=== PATIENT | female | born 1950 | race Caucasian/White ===

== ENCOUNTER → 2017-04-22 19:55 | Outpatient (CLI) | payer MEDICARE, MEDICAID ==
[2013-09-06 13:28] VITALS: BMI 31.7
[~2017-04-22 19:55] MED LIST: BIOTIN5 MG PO; COLACE100 MG PO; CYMBALTA30 MG PO; DANTRIUM25 MG PO; DILAUDID4 MG PO; DOXEPIN HCL75 MG PO; ESTRACE 0.5 MG0.5 MG PO; LIPITOR20 MG PO; LISINOPRIL10 MG PO; LOPID600 MG PO; MOBIC7.5 MG PO; PERCOCET 10/3251 TA1 PO; PRINZIDE 10/12.1 TAB PO; PROTONIX40 MG PO; ZANAFLEX4 MG PO
== END | disposition home or self-care (01) ==
LOC: D.LABREF 19:55
DX: M25.512 Pain in left shoulder (principal); Z11.8 Encounter for screening for other infectious and parasitic diseases

== ENCOUNTER 2017-05-11 05:08 | Inpatient (IN) | payer MEDICARE, MEDICAID ==
[2017-05-08 08:54] LABS: BASOPHILS 0.3 % (0-2); EOSINOPHILS 2.7 % (0-7); HEMOGLOBIN 12.9 g/dL (12-16); IMMATURE GRANULOCYTES 0.3 % (0-5); MCH 28.9 pg (26.0-34.0); MCHC 32.3 g/dL (31.0-37.0); MCV 89.5 fL (80.0-100.0); MEAN PLATELET VOLUME 9.6 fL (7.4-10.4); MONOCYTES 5.8 % (2-11); NEUTROPHILS 67.9 % (40-80); PLATELET COUNT 289 10x3/uL (130-400); RBC 4.47 10x6/uL (4.00-5.40); RDW 13.7 % (11.5-14.5); WBC 9.1 10x3/uL (4.8-10.8)
[2017-05-08 08:57] LABS: APPEARANCE CLEAR (CLEAR); BILIRUBIN NEGATIVE (NEGATIVE); COLOR DK YELLOW (YELLOW); GLUCOSE NEGATIVE (NEGATIVE); KETONE NEGATIVE (NEGATIVE); NITRITE NEGATIVE (NEGATIVE); PROTEIN NEGATIVE (NEGATIVE); SPECIFIC GRAVITY 1.015 (1.005-1.020); UROBILINOGEN NORMAL (NORMAL)
[2017-05-08 09:04] LABS: ANION GAP 12.4 mmol/L (8-16); CALCIUM 9.2 mg/dL (8.5-10.1); CARBON DIOXIDE 29.6 mmol/L (21.0-32.0); CREATININE - SERUM 0.9 mg/dL (0.6-1.3)
[2017-05-08 09:06] LABS: APTT 30.9 SECONDS (22.8-39.4); INR 0.95 (0.85-1.17); PROTIME 12.5 SECONDS (11.6-15.0)
[~2017-05-11 05:08] MED LIST changes: -PERCOCET 10/3251 TA1 PO
[2017-05-11 06:31] VITALS: BP 137/88; BMI 33.7
[2017-05-11 10:35] VITALS: BP 125/77
[2017-05-11 10:43] VITALS: BP 125/77; BMI 28.4
--- NOTE | 2017-05-11 13:11 | OP ---
PATIENT NAME: ROYER PETER MEDICAL RECORD: [id number] :52 LOCATION:[id number] ADMISSION DATE:05/11/17 SURGEON: ARGELIA CANCHOLA MD DATE OF OPERATION: 05/11/2017 PREOPERATIVE DIAGNOSIS: Painful total shoulder arthroplasty. POSTOPERATIVE DIAGNOSIS: Painful total shoulder arthroplasty. PROCEDURE: Revision of total shoulder arthroplasty. SURGEON: Argelia Canchola MD ANESTHESIA: General. INTRAOPERATIVE COMPLICATIONS: None. SUMMARY OF PATHOLOGIC FINDINGS: The patient did have a very abnormal wear pattern on the glenoid. The glenoid was indeed very easily removable indicating some looseness. There was no glenoid vault bone loss and therefore it was reasonable to replace the glenoid as well as the humeral head component while the stem was well fixed and did not seem to have any problems with that at all, it was left in situ. OPERATIVE SUMMARY IN DETAIL: After obtaining the appropriate preoperative orthopedic surgery consent as well as anesthetic consultation, evaluation and clearance, the patient was brought to the operating room and placed in supine position. After general laryngeal mask was administered, the patient was placed in beach chair position. All pressure points were well padded. She was held firmly to the operating table using the vacuum pack suction system. Right upper extremity and shoulder were then prepped and draped in routine sterile fashion. The arm was held in the Trimano arm holding device from [employer]. Deltopectoral incision was taken down to the level of the deltopectoral interval. Careful dissection was taken to the scar tissue to reveal the subscapularis. Deltoid was retracted posteriorly using the brown retractor. The conjoined tendon was retracted gently medially after it was carefully dissected free of the anterior shoulder. Subscapularis was taken down. The component was visualized. Humeral head was removed. There was some abnormal wiring on the humeral head as well. This was removed and taken off the back table. At this point, the glenoid was inspected and found to be loose and it was removed with very little bone loss, minimal osteolysis was noted. Central guide pin was then placed back in the glenoid and reaming was repaired again followed by redrilling in preparation for the revision component. The Arth[employer] vault lock component was then cemented into place. All excess cement was removed and pressure was held until the cement hardened on the back table. This was copiously irrigated and then again the stem was thoroughly inspected for any areas of looseness or osteolysis and none were found. The humeral head corresponding to the same dimensions of the previous was put back into place, tamped into place with Fisher taper. The shoulder was reduced, taken through range of motion and found to be stable in all planes. The subscapularis was then reapproximated back to the lesser tuberosity in a transosseous fashion using #2 Ethibond. Wound was again irrigated and closed with #1 Vicryl followed by 2-0 Vicryl and skin baldo. Sterile dressings were applied. The patient was awakened and taken to recovery room in stable condition. All final needle and sponge counts were correct. 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 [address] [place] [address]
[2017-05-11 20:00] VITALS: BP 152/100
[2017-05-12] VITALS: BP 158/91
[2017-05-12 04:00] VITALS: BP 144/89
[2017-05-12 06:03] LABS: HEMATOCRIT 36.9 % (36.0-48.0); HEMOGLOBIN 11.6 g/dL (12-16); MCH 28.6 pg (26.0-34.0); MCHC 31.4 g/dL (31.0-37.0); MCV 91.1 fL (80.0-100.0); RBC 4.05 10x6/uL (4.00-5.40); RDW 14.1 % (11.5-14.5); WBC 10.3 10x3/uL (4.8-10.8)
[2017-05-12] MEDS ORDERED: PERCOCET 10/3251 TA1 PO (08:18)
[2017-05-12 08:40] VITALS: BP 160/93
== END 2017-05-12 13:14 | disposition home or self-care (01) | DRG 483 ==
LOC: D.SDCHOLD 05:08 → D.MS 10:24
PROVIDERS: ADMIT Orthopaedic Surgery
PROC: 0RPJ0JZ Removal of Synthetic Substitute from Right Shoulder Joint, Open Approach (ICD-10-PCS; 2017-05-11)
PROC: 0RRJ0JZ Replacement of Right Shoulder Joint with Synthetic Substitute, Open Approach (ICD-10-PCS; principal; 2017-05-11 08:00)
DX: T84.84XA Pain due to internal orthopedic prosthetic devices, implants and grafts, initial encounter (principal); K21.9 Gastro-esophageal reflux disease without esophagitis; I10 Essential (primary) hypertension; E11.9 Type 2 diabetes mellitus without complications; E78.5 Hyperlipidemia, unspecified